=== PATIENT | male | born 1975 | race Caucasian/White ===

== ENCOUNTER 2019-08-08 09:07 | Inpatient (IN) | payer SELFPAY ==
--- NOTE | 2019-08-08 10:07 | RAD ---
RIGHT ANKLE 3 VIEWS: Date: 08/08/2019 HISTORY: Trauma, right ankle pain. FINDINGS/IMPRESSION: Trimalleolar fracture is seen with mild displacement. POS: [facility]
--- NOTE | 2019-08-08 11:46 | RAD ---
PORTABLE CHEST: Date: 08/08/2019 HISTORY: Preop evaluation. FINDINGS: The lungs are clear. Heart and mediastinum appear normal. Vasculature normal. IMPRESSION: No acute process. POS: [facility]
[2019-08-08 12:05] LABS: #Eosinphils 0.3 thou/uL (0.0-0.7); #Lymphocytes 1.7 thou/uL (1.20-3.40); #Monocytes 0.4 thou/uL (0.11-0.59); #Neutrophils 5.1 thou/uL (1.40-6.50); %Basophils 0.6 % (0.0-1.0); %Eosinophils 4.4 % (0.0-10.0); %Lymphocytes 22.8 % (21.0-51.0); %Monocytes 5.2 % (0.0-10.0); %Neutrophils 67.1 % (42.0-75.0); Hemoglobin 12.5 g/dL (14.0-18.0); Mean Corpuscular HGB CONC 31.7 g/dL (32.0-36.0); Mean Corpuscular Hemoglobin 27.4 pg (27.0-31.0); Mean Corpuscular Volume 86.4 fL (78.0-98.0); Mean Platelet Volume 7.1 fL (7.4-10.4); Platelet Count 393 thou/uL (130-400); RBC Distribution Width 12.3 % (11.5-14.5); Red Blood Cell (RBC) Count 4.56 mill/uL (4.70-6.10); White Blood Cell (WBC) Count 7.6 thou/uL (4.8-10.8)
[2019-08-08 12:11] LABS: PTT 30.3 SEC (22.9-36.1)
[2019-08-08 12:30] LABS: Phosphorus 2.8 mg/dL (2.3-4.7)
[2019-08-08] MEDS ORDERED: Dextrose 50% Abboject 50 ML SYRINGE SLOW IVP PRN (12:31)
[2019-08-08] MEDS ORDERED: Dextrose 5% in Water 1,000 ML IV PRN (12:31)
[2019-08-08 12:34] LABS: ALT (SGPT) 11 U/L (8-55); AST (SGOT) 15 U/L (5-34); Albumin 4.3 g/dL (3.5-5.0); Alkaline Phosphatase 241 U/L (40-110); Anion Gap 14 mmol/L (10-20); BUN (Urea Nitrogen) 23 mg/dL (8.9-20.6); Bilirubin, Total 0.4 mg/dL (0.2-1.2); Calc. Creatinine Clearance 0 mL/min (70-130); Calcium 9.4 mg/dL (7.8-10.44); Carbon Dioxide 24 mmol/L (22-29); Chloride 103 mmol/L (98-107); Estimated GFR-MDRD 76; Globulin 4.3 g/dL (2.4-3.5); Glucose 276 mg/dL (70-105); Magnesium 1.8 mg/dL (1.6-2.6); Potassium 4.4 mmol/L (3.5-5.1); Protein, Total 8.6 g/dL (6.0-8.3); Sodium 137 mmol/L (136-145)
[2019-08-08] MEDS ORDERED: Ondansetron PF 4 MG/2 ML Vial IVP PRN ×2 (12:39→18:18)
[2019-08-08] MEDS ORDERED: Morphine 2 MG/ML SYRINGE SLOW IVP PRN ×2 (12:39→21:35)
[2019-08-08] MEDS ORDERED: hydrALAZINE 20 MG/ML VIAL SLOW IVP PRN (12:39)
[2019-08-08] MEDS ORDERED: Insulin Regular 300 UNITS/3 ML VIAL SC PRN (12:39)
[2019-08-08] MEDS ORDERED: Ondansetron ODT 4 MG TAB PO PRN ×2 (12:39→18:18)
[2019-08-08] MEDS ORDERED: Cyclobenzaprine 10 MG TAB PO PRN (12:42)
[2019-08-08] MEDS ORDERED: traMADol HCl 50 MG TAB PO PRN (12:42)
[2019-08-08] MEDS ORDERED: Ibuprofen 800 MG TAB PO PRN (12:42)
[2019-08-08] MEDS ORDERED: Sodium Chloride 0.9% 1,000 ML IV SCH ×2 (12:45→18:30)
[2019-08-08] MEDS ORDERED: Ondansetron PF 4 MG/2 ML Vial ONE (14:44)
[2019-08-08] MEDS ORDERED: Dexamethasone 20 MG/5 ML VIAL ONE (14:44)
[2019-08-08] MEDS ORDERED: Lidocaine 1% PF 5 ML VIAL ONE (14:44)
[2019-08-08] MEDS ORDERED: Ketorolac Tromethamine 30 MG/ML VIAL ONE (14:44)
[2019-08-08] MEDS ORDERED: PROPOFOL 200 MG/20 ML VIAL ONE (14:44)
[2019-08-08] MEDS ORDERED: EPHEDRINE 25 MG/5 ML SYRINGE ONE (14:44)
[2019-08-08] MEDS: Gabapentin 300 MG CAP PO SCH ×2 (15:08→20:06)
[2019-08-08] MEDS: Acetaminophen 500 MG TAB PO SCH ×2 (15:08→21:38)
[2019-08-08] MEDS: traMADol HCl 50 MG TAB PO SCH ×2 (15:09→21:38)
[2019-08-08] MEDS ORDERED: Fentanyl 100 MCG/2 ML VIAL ONE (16:08)
--- NOTE | 2019-08-08 16:16 | HP ---
REQUESTING PHYSICIAN: Dr. Mancuso. CONSULTS: Dr. Ramos, Orthopedic Surgery. PRIMARY CARE PHYSICIAN: At [facility]. CHIEF COMPLAINT: Right ankle pain and deformity. HISTORY OF PRESENT ILLNESS: This is a 44-year-old gentleman who presented to the emergency room with complaints of pain and swelling to his right ankle. The patient reports twisting his ankle on Sunday. The patient reports history of diabetes mellitus with neuropathy and the pain was not as bad as initially. After family saw the deformity and swelling, they encouraged him to go to the emergency room for evaluation. The patient had a work-related crush type injury to his right lower extremity in November of 2018. The patient previously was seen by Dr. Ramos for this injury. The patient denies falling, hitting his head, or losing consciousness. The patient denies any other injuries. The patient's right lower extremity is neurovascularly intact at this time. ER physician is preparing to splint the extremity. The patient last had anything to eat or drink around is 8:40 this morning. ALLERGIES: NO KNOWN DRUG ALLERGIES. MEDICATIONS: 1. Metformin 500 mg p.o. b.i.d. 2. Insulin 30 units subcu once a day in the morning. PAST MEDICAL HISTORY: Type 2 diabetes with neuropathy. PAST SURGICAL HISTORY: Right lower extremity repair from a traumatic injury. SOCIAL HISTORY: Denies alcohol use, denies illicit drug use, denies history of smoking. The patient has been unemployed since his injury in 11/2018. The patient is Gu[place]ian-speaking, family member at bedside to translate. REVIEW OF SYSTEMS: A 10-point review of systems is negative unless otherwise indicated in the above HPI. PHYSICAL EXAMINATION: VITAL SIGNS: Blood pressure 146/79, pulse 80, respirations 20, temperature 98.4, SpO2 99% on room air. GENERAL: Well-appearing middle-aged gentleman, awake, alert, in no distress. HEENT: Head is atraumatic and normocephalic. Mucous membranes are moist. NECK: Normal range of motion of the neck. RESPIRATORY: Equal chest rise and fall. Bilateral breath sounds clear. No wheezing, rales, or rhonchi. CARDIAC: Regular rate, regular rhythm. No murmurs. No significant lower extremity edema. ABDOMEN: Soft, nontender, nondistended. EXTREMITIES: Moves all extremities, neurovascularly intact x4, right lower extremity with swelling and deformity. NEUROLOGIC: No focal deficits. LABORATORY DATA: WBC 7.6, RBC 4.56, hemoglobin 12.5, hematocrit 39.4, platelets 393. Sodium 137, potassium 4.4, chloride 103, BUN 23, creatinine 1.05, estimated GFR 76, glucose 276, calcium 9.4, phosphorus 2.8, magnesium 1.8. AST 15, ALT 11, alkaline phosphatase 241, serum total protein 8.6. DIAGNOSTIC DATA: 1. Right ankle x-ray; impression, trimalleolar fracture with mild displacement. 2. Chest x-ray; impression, the lungs are clear. Heart and mediastinum appear normal. Vasculature normal. No acute process. IMPRESSION: 1. Status post twisting of right ankle with delayed presentation. 2. Right trimalleolar fracture. 3. History of type 2 diabetes mellitus with neuropathy, previous injury to right lower extremity in 11/2018. PLAN: N.p.o., on IV maintenance fluids at [address] Pain control. [address] Ramos plans to take the patient to the OR later today. We will have PT and OT evaluate and treat postop. The patient should most likely be able to be discharged home tomorrow if his pain is controlled and he is able to ambulate safely. We will place the patient on a mild sliding scale and increase if needed. The patient will have a diabetic diet postop. The plan was discussed with the patient and family who agree. The plan was discussed with the attending who agrees. Job ID: [id number]
[2019-08-08] MEDS ORDERED: Bupivacaine/Epinephrine 0.25% 30 ML VIAL ONE (17:54)
[2019-08-08] MEDS ORDERED: Milk Of Magnesia 30 ML UDCUP PO PRN (18:18)
[2019-08-08] MEDS ORDERED: Fleet Enema 133 ML BOT PR PRN (18:18)
[2019-08-08] MEDS ORDERED: Cepastat Lozenges 1 LOZ PO PRN (18:18)
[2019-08-08] MEDS ORDERED: Fentanyl 100 MCG/2 ML VIAL SLOW IVP PRN (18:18)
[2019-08-08] MEDS ORDERED: Acetaminophen 325 MG TAB PO PRN ×2 (18:18→18:31)
[2019-08-08] MEDS ORDERED: Bisacodyl 10 MG SUPP PR PRN (18:18)
[2019-08-08] MEDS ORDERED: Promethazine HCl 25 MG/ML VIAL SLOW IVP PRN (18:23)
[2019-08-08] MEDS ORDERED: Promethazine HCl 25 MG/ML VIAL IM PRN (18:23)
[2019-08-08] MEDS ORDERED: Ondansetron HCl/PF 4 MG/2 ML Vial IVP PRN (18:23)
[2019-08-08 18:55] VITALS: BMI 27.7
--- NOTE | 2019-08-08 19:21 | RAD ---
RIGHT ANKLE TWO VIEW: 08/08/19 HISTORY: ORIF. COMPARISON: Radiograph same day. FINDINGS: Satisfactory appearance of the lateral plate and screw fixation as well as the medial and posterior m alleolar screws. IMPRESSION: Satisfactory postoperative appearance. POS: HOME
[2019-08-08] MEDS: Senokot S 8.6-50 MG TAB PO SCH (20:06)
[2019-08-08] MEDS: Aspirin 325 MG TAB PO SCH (20:07)
[2019-08-08] MEDS ORDERED: Senokot S 8.6-50 MG TAB PO SCH (21:00)
[2019-08-09] MEDS: Ketorolac Tromethamine 30 MG/ML VIAL IVP SCH ×3 (00:22→11:37)
[2019-08-09] MEDS: CEFAZOLIN 2 GM in Premix Bag 1 BAG IVPB SCH ×2 (00:22→09:06)
--- NOTE | 2019-08-09 01:22 | OP ---
DATE OF PROCEDURE: 08/08/2019 PREOPERATIVE DIAGNOSIS: Trimalleolar fracture of the right ankle. POSTOPERATIVE DIAGNOSIS: Trimalleolar fracture of the right ankle. PROCEDURES PERFORMED: Open reduction and internal fixation of trimalleolar fracture of the right ankle. ANESTHESIA: General. DESCRIPTION OF PROCEDURE: The patient was given preoperative IV antibiotics, taken to the operating room, placed in supine position. Satisfactory general anesthesia was performed. The right foot, ankle, and leg were sterilely prepped and draped in usual fashion. After exsanguination, tourniquet of the right proximal calf was raised to 250 mmHg. The medial aspect of the ankle was first addressed. A longitudinal incision was made over the medial aspect of the distal tibia and the fracture was reduced, held reduced with a bone clamp and then internally fixed with three 4.0 cannulated screws. This provided anatomic alignment of the medial malleolar fracture. A longitudinal incision was made over the lateral malleolus. Blunt and sharp dissection was made to the periosteum which was periosteally elevated, fracture was reduced and then internally fixed using a [employer] 3-hole distal fibular plate putting 3.5 cortical screws; 2 of them into the shaft and 2.7 locking screws distally and then one proximally in the shaft. This was all performed under fluoroscopic visualization. This showed anatomic alignment of the medial, lateral, and posterior malleoli. The 2 wounds were then irrigated with normal saline. They were closed using 2-0 Vicryl for the deeper tissue and 3-0 repeat for the skin. Each of the incisions were then injected with 11 mL of 0.5% Marcaine with epinephrine. Sterile dressing was applied. The tourniquet was released. The patient was placed in a boot with the ankle in neutral position. He was awakened, extubated, and transferred to recovery room in stable condition. ESTIMATED BLOOD LOSS: Minimal. COMPLICATIONS: None. TOURNIQUET TIME: 45 minutes. Job ID: [id number]
[2019-08-09] MEDS: traMADol HCl 50 MG TAB PO SCH ×3 (02:26→14:34)
[2019-08-09] MEDS: Acetaminophen 500 MG TAB PO SCH ×3 (02:26→14:34)
[2019-08-09] MEDS: Insulin Regular 300 UNITS/3 ML VIAL SC PRN ×2 (05:31→11:40)
[2019-08-09 05:47] LABS: #Lymphocytes 1.3 thou/uL (1.20-3.40); #Monocytes 0.6 thou/uL (0.11-0.59); #Neutrophils 9.8 thou/uL (1.40-6.50); %Basophils 0.3 % (0.0-1.0); %Eosinophils 0.3 % (0.0-10.0); %Lymphocytes 10.8 % (21.0-51.0); %Monocytes 5.1 % (0.0-10.0); %Neutrophils 83.6 % (42.0-75.0); Hemoglobin 11.3 g/dL (14.0-18.0); Mean Corpuscular HGB CONC 32.1 g/dL (32.0-36.0); Mean Corpuscular Hemoglobin 27.9 pg (27.0-31.0); Mean Corpuscular Volume 86.8 fL (78.0-98.0); Mean Platelet Volume 6.9 fL (7.4-10.4); Platelet Count 332 thou/uL (130-400); RBC Distribution Width 12.3 % (11.5-14.5); Red Blood Cell (RBC) Count 4.04 mill/uL (4.70-6.10); White Blood Cell (WBC) Count 11.7 thou/uL (4.8-10.8)
[2019-08-09 05:52] LABS: Anion Gap 14 mmol/L (10-20); BUN (Urea Nitrogen) 21 mg/dL (8.9-20.6); Calc. Creatinine Clearance 106 mL/min (70-130); Calcium 8.2 mg/dL (7.8-10.44); Carbon Dioxide 22 mmol/L (22-29); Chloride 105 mmol/L (98-107); Estimated GFR-MDRD 84; Glucose 309 mg/dL (70-105); Magnesium 1.7 mg/dL (1.6-2.6); Potassium 4.8 mmol/L (3.5-5.1); Sodium 136 mmol/L (136-145)
[2019-08-09 05:55] LABS: Phosphorus 3.7 mg/dL (2.3-4.7)
--- NOTE | 2019-08-09 06:09 | PRG ---
DATE OF SERVICE: 08/08/2019 SUBJECTIVE: The patient was seen this evening during rounds. He was lying in bed comfortably and asleep with no signs of acute distress. Nursing reported no acute events. He is postoperative day 0 after fixation of a right trimalleolar fracture. OBJECTIVE: VITAL SIGNS: Temperature 98.7, pulse 64, respirations 16, oxygen saturation 95% on room air, and blood pressure 122/75. GENERAL: Well-appearing elderly male, lying in bed, asleep with no signs of acute distress. PULMONARY: Equal chest rise and fall. Clear breath sounds bilaterally. No signs of acute respiratory distress. ASSESSMENT: 1. Right trimalleolar fracture, status post repair. 2. History of previous right leg trauma, diabetes, and peripheral neuropathy. PLAN: Continue diabetic diet. Continue Toradol for pain control. Continue PT and OT. Job ID: [id number] MTDD
[2019-08-09] MEDS ORDERED: Polyethylene Glycol 3350 17 GM Packet PO SCH (09:00)
[2019-08-09] MEDS ORDERED: Multivitamin W/ Minerals 1 TAB PO SCH (09:00)
[2019-08-09] MEDS: Gabapentin 300 MG CAP PO SCH ×2 (09:07→14:34)
[2019-08-09] MEDS: Aspirin 325 MG TAB PO SCH (09:07)
[2019-08-09] MEDS: Senokot S 8.6-50 MG TAB PO SCH (09:07)
[2019-08-09 11:48] VITALS: BP 157/74; TEMP 97.8
[2019-08-11] MEDS ORDERED: Ibuprofen 800 MG TAB PO PRN (06:00)
== END 2019-08-09 15:55 | disposition home or self-care (01) | DRG 494 ==
LOC: ERS 09:07 → SURG A 12:38
PROVIDERS: ADMIT Surgery; ATTEND Surgery
PROC: 0QSJ04Z Reposition Right Fibula with Internal Fixation Device, Open Approach (ICD-10-PCS; principal; 2019-08-08)
PROC: 0QSG04Z Reposition Right Tibia with Internal Fixation Device, Open Approach (ICD-10-PCS; 2019-08-08)
DX: S82.851A Displaced trimalleolar fracture of right lower leg, initial encounter for closed fracture (principal); E11.42 Type 2 diabetes mellitus with diabetic polyneuropathy; X50.1XXA Overexertion from prolonged static or awkward postures, initial encounter; Z79.4 Long term (current) use of insulin
CPT/HCPCS: 27818; 36415; 36416; 71045; 76000; 80048; 80053; 83735; 84100; 85025; 85610; 85730; 93005; C1713; C1769; J0360; J0690; J1100; J1815; J1885; J2001; J2405; J2704; J3010